=== PATIENT | female | born 1985 | race Caucasian/White ===

== ENCOUNTER 2020-11-27 04:45 | Inpatient (IN) | payer BC ==
--- NOTE | 2020-11-26 21:26 | PCM.LDHP ---
L&D History of Present Illness - General Date of Service: 11/27/20 Admit Problem/Dx: Admission Diagnosis/Problem Admission Diagnosis/Problem 11/26/20 21:15 Danielle is a 35-year-old 3 para 2-0-0-2 female admitted on the a.m. of 11/27/2020 at 39-0/7 weeks gestational age with an LEONARDO of 12/04/2020 for a repeat section. Source of Information: Patient History Limitations: Reports: No Limitations - History of Present Illness Introduction:: Danielle is a 35-year-old 3 para 2-0-0-2 female admitted on the a.m. of 11/27/2020 at 39-0/7 weeks gestational age with an LEONARDO of 12/04/2020 for a repeat section. The procedure of repeat section, its risks, benefits, alternatives of care including allowing for natural onset of labor in an attempt at trial of labor after section for vaginal after section along with follow-up and postoperative course discussed in detail with patient. She appears to understand, wishes to proceed and has signed a consent. 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 She had menarche at age 11. Cycles q. 28-31 daysregular. No control time of conception. Her last menstrual period started on 02/28/2020. Ultrasound done early in confirmed her LMP dating for final LEONARDO of 12/04/2020. Her obstetric history includes the followin. Female infant born 08/17/2007 at 40 weeks gestational age after 13 hours of labor8 pounds 9 ouncesvacuum extraction deliveryepidural usedMinn[facility]. Male infant born 04/10/2010 at 40 weeks gestational age after 30 hours of labor9 pounds 3 ouncesprimary section done for failure to progress secondary to CPD. Spinal anesthesia use. [facility]. Child's name is Marshal Santos has had an abnormal Pap smear with cervical cryotherapy in 2008. course: Danielle was first seen for the on 05/13/2020. Ultrasound at that time supported her LMP dating. She had 2 other ultrasounds done on 08/05/2020 at 23-5/7 weeks and again on 10/07/2020 at 34-2/7 weeks. Both showing growth at the 88th to the 91st percentile. She was seen on a very regular basis throughout the . Her weight gain was from 276.4 to 298 pounds for a 24 pound increase. Her vital signs remained stable throughout the course. Fundal height growth reached 42.5 cm on last evaluation clinic on 11/14/2020. She is group B strep positive on urine culture done at the beginning of . Risk factors for the include advanced maternal age, increased weight, history of previous section, history of depression with anxiety and history of macrosomia. Patient plans to breast-feed. Prequel was negative. Patient had her Tdap on 10/02/2020. She is rubella immune. Hepatitis B immunizations given in 1996. Td also given in 1996. Allergies: None Medications: 1. Ferrous sulfate 325 mg p.o. daily 2. vitamins 1 p.o. daily Past medical history: 1. Depression on medications till October 2020. History of anxiety also. 2. History of cervical abnormalitytreated with cervical cryotherapy 3. Vaginal deliveryvacuum extraction delivery-2005 Past surgical history: 1. Primary section 2008 for failure to progress 2. Cervical cryotherapy 2008. Family history: Mother is alive and well with thyroid dysfunction. Father is alive with history of heart attack, had 3 stents placedis prediabetic. Maternal grandfather secondary to aortic aneurysm. Maternal gra ndmother is alive with history of skin cancer and currently has some kidney disease. Paternal grandfather secondary to throat cancer. Paternal grandmother secondary to breast cancer. 1 brother is alive with history of gout and heart issues. Sister alive with history of asthma tendencies. Paternal aunt alive with Parkinson's disease. Paternal cousin alive with testicular cancer. There is no family history of bleeding or clotting disorders, anesthesia problems or related concerns. Social history: Patient is . is Colin Duarte. 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 She is a college graduate. She and her family live in [place], [place]. She does not use any significance alcohol, drugs or tobacco. Review of systems: Review of systems: In general patient has no complaints. Baby has been active. No significant contractions have been noted. Skin: Negative Lungs: No infectious symptoms or shortness of breath Cardiovascular: No chest pain or exercise intolerance Breasts: No lumps, changes in size, pain, dimpling, discharge or axillary or supraclavicular concerns. Patient plans to breast-feed. GI: Negative : Body habitus changes associated . Musculoskeletal: Negative Neurological: Negative Physical exam: In general the patient is well-developed, well-nourished, pleasant female of stated age in no acute distress. On last evaluation on 11/14/2020 in clinic weight was 298 pounds with a prepregnancy weight of 276.4 pounds. Height is 5 feet 9. Prepregnancy BMI is 41.6. Blood pressure 108/64. heart rate is 149. Skin is warm dry without lesions. HEENT, neck and back within normal limits. Lungs are clear with good breath sounds in all lung ashley. Cardiovascular exam shows regular and rhythm without murmurs. Breast exam done at beginning of was within normal notes and is not repeated at this time. Abdomen is gravid with last fundal height in 42.5 cm. Baby in vertex presentation.. Genital cervical exam is deferred as patient is planning having a repeat C- section. Last evaluation done 11/07/2020 shows cervix to be soft, closed, thick without evidence of ripening. Extremities and neurological exam are grossly within normal limits with the exception of trace edema in bilateral lower extremities.. 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 Social & Family History - Family History Family Medical History: No Pertinent Family History - Tobacco Use Tobacco Use Status *Q: Never Tobacco User Second Hand Smoke Exposure: No - Caffeine Use Caffeine Use: Reports: None - Recreational Drug Use Recreational Drug Use: No H&P Review of Systems - Review of Systems: Review Of Systems: See Below L&D Exam - Exam Exam: See Below - Problem List (1) 39 weeks gestation of SNOMED Code(s): 72278760 ICD Code: Z3A.39 - 39 WEEKS GESTATION OF Status: Acute (2) Previous section SNOMED Code(s): 738603985 ICD Code: Z98.891 - HISTORY OF UTERINE SCAR FROM PREVIOUS SURGERY Status: Acute (3) macrosomia SNOMED Code(s): 11809961 ICD Code: O36.60X0 - MATERNAL CARE FOR EXCESS GROWTH, UNSP TRIMESTER, UNSP Status: Acute (4) Obesity SNOMED Code(s): 091755891, 284896995 ICD Code: E66.9 - OBESITY, UNSPECIFIED Status: Acute Qualifiers: Body mass index: BMI 40.0-44.9 (5) History of anxiety SNOMED Code(s): 783786456 ICD Code: Z86.59 - PERSONAL HISTORY OF OTHER MENTAL AND BEHAVIORAL DISORDERS Status: Acute (6) History of depression SNOMED Code(s): 111055539 ICD Code: Z86.59 - PERSONAL HISTORY OF OTHER MENTAL AND BEHAVIORAL DISORDERS Status: Acute (7) Advanced maternal age (AMA) in SNOMED Code(s): 060988971 ICD Code: LMB0620 - Status: Acute (8) Group beta Strep positive SNOMED Code(s): 267498666, 984172133 ICD Code: B95.1 - STREPTOCOCCUS, GROUP B, CAUSING DISEASES CLASSD ELSWHR Status: Acute Problem List Initiated/Reviewed/Updated: Yes Assessment/Plan Comment:: 1Gee Santos is a 35-year-old 3 para 2-0-0-2 female admitted on the a.m. of 11/27/2020 at 39-0/7 weeks gestational age with an LEONARDO of 12/04/2020 for a repeat section. 2. Group B strep positive per urine culture done early in 3. Patient plans to breast-feed 4. Risk factors for the include the following: Obesity, history of macrosomia, history of previous section, history of anxiety and depressionpreviously treated, advanced maternal age, group B strep positive status. 5. Prequel noninvasive screen was negative. 6. Patient is rubella immune. Tdap given in . Plan: 1. Repeat lower uterine segment transverse section through Pfannenstiel skin incision under spinal block. Procedure, risk, benefits, alternatives of care and follow-up discussed with patient in detail. She appears understand, wishes to proceed and signed a consent. 2. DVT prophylaxis with SCDs 3. Infection prophylaxis with 3 g of Ancef preoperatively 4. Preoperative evaluation consist of CBC, Covid19 testing, urine analysis, type and screen, RPR 5. Support breast-feeding decision
[2020-11-27] MEDS ORDERED: Azithromycin 500 MG in Sodium Chloride 0.9% 250 ML IV ONE (05:42)
[2020-11-27] MEDS: Lactated Ringers 1,000 ML IV SCH ×2 (05:48→07:09)
[2020-11-27] MEDS ORDERED: Citric Acid/Sodium Citrate Solution 30 ML Cup PO ONE (06:00)
[2020-11-27] MEDS ORDERED: ceFAZolin 2 GM in Premix Bag 1 BAG IV ONE (06:00)
[2020-11-27] MEDS ORDERED: ceFAZolin 1 GM in Sodium Chloride 0.9% 100 ML IV ONE (06:00)
[2020-11-27] MEDS ORDERED: Oxytocin/Lactated Ringers 20 UNIT/1,000 ML BAG IV SCH ×2 (06:00→10:15)
[2020-11-27] MEDS ORDERED: Metoclopramide 10 MG/2 ML SDV IVPUSH ONE (06:00)
[2020-11-27] MEDS ORDERED: Sodium Chloride 0.9% 10 ML Syringe FLUSH PRN (06:00)
[2020-11-27] MEDS ORDERED: ceFAZolin 1 GM Vial ONE ×2 (07:03→07:36)
[2020-11-27] MEDS ORDERED: Ketorolac 30 MG/ML SDV ONE (07:03)
[2020-11-27] MEDS ORDERED: Lactated Ringers 2,000 ML ONE (07:03)
[2020-11-27] MEDS ORDERED: Oxytocin 10 Units/1 ML SDV ONE ×2 (07:03→07:04)
[2020-11-27] MEDS ORDERED: Ondansetron 4 MG/2 ML SDV ONE (07:03)
[2020-11-27] MEDS ORDERED: Morphine PF 10 MG/10 ML SDV ONE (07:04)
[2020-11-27] MEDS ORDERED: Bupivacaine 0.5% 30 ML SDV ONE (07:17)
--- NOTE | 2020-11-27 07:25 | PCM.PREANE ---
Preanesthetic Assessment - Procedure Proposed Procedure: csection - Anesthesia/Transfusion/Family Hx Anesthesia History: Prior Anesthesia Reaction Other Type of Anesthesia Reaction Comment: Blurred vision, lightheadedness Family History of Anesthesia Reaction: No Transfusion History: No Prior Transfusion(s) - Review of Systems General: No Symptoms Pulmonary: No Symptoms Cardiovascular: No Symptoms Gastrointestinal: No Symptoms Neurological: No Symptoms Other: Reports: None - Physical Assessment NPO Status Date: 11/26/20 NPO Status Time: 23:30 Vital Signs: Last Vital Signs Temp 98.1 F 11/27/20 05:00 Pulse 117 H 11/27/20 05:00 Resp 14 11/27/20 05:00 BP 123/67 11/27/20 05:00 Pulse Ox 96 11/27/20 05:00 Height: 5 ft 9 in Weight: 134.808 kg ASA Class: 2 Mental Status: Alert & Oriented x3 Airway Class: Mallampati = 1 Dentition: Reports: Normal Dentition Thyro-Mental Finger Breadths: 3 Mouth Opening Finger Breadths: 3 ROM/Head Extension: Full Lungs: Clear to Auscultation, Normal Respiratory Effort Cardiovascular: Regular Rate, Regular Rhythm - Lab Values: Laboratory Last Values WBC 12.95 K/mm3 (3.98-10.04) H 11/27/20 05:38 RBC 3.89 M/mm3 (3.98-5.22) L 11/27/20 05:38 Hgb 11.0 gm/dl (11.2-15.7) L 11/27/20 05:38 Hct 33.9 % (34.1-44.9) L 11/27/20 05:38 MCV 87.1 fl (79.4-94.8) 11/27/20 05:38 MCH 28.3 pg (25.6-32.2) 11/27/20 05:38 MCHC 32.4 g/dl (32.2-35.5) 11/27/20 05:38 RDW Std Deviation 42.4 fL (36.4-46.3) 11/27/20 05:38 Plt Count 267 K/mm3 (182-369) 11/27/20 05:38 MPV 10.6 fl (9.4-12.3) 11/27/20 05:38 Neut % (Auto) 73.2 % (34.0-71.1) H 11/27/20 05:38 Lymph % (Auto) 19.5 % (19.3-51.7) 11/27/20 05:38 Pinal % (Auto) 6.1 % (4.7-12.5) 11/27/20 05:38 Eos % (Auto) 0.5 (0.7-5.8) L 11/27/20 05:38 Baso % (Auto) 0.2 % (0.1-1.2) 11/27/20 05:38 Neut # (Auto) 9.48 K/mm3 (1.56-6.13) H 11/27/20 05:38 Lymph # (Auto) 2.53 K/mm3 (1.18-3.74) 11/27/20 05:38 Pinal # (Auto) 0.79 K/mm3 (0.24-0.36) H 11/27/20 05:38 Eos # (Auto) 0.07 K/mm3 (0.04-0.36) 11/27/20 05:38 Baso # (Auto) 0.02 K/mm3 (0.01-0.08) 11/27/20 05:38 Urine Color Yellow (Yellow) 11/27/20 05:31 Urine Appearance Cloudy (Clear) H 11/27/20 05:31 Urine pH 6.5 (5.0-8.0) 11/27/20 05:31 Ur Specific [place] 1.025 (1.005-1.030) 11/27/20 05:31 Urine Protein 2+ (Negative) H 11/27/20 05:31 Urine Glucose (UA) Negative (Negative) 11/27/20 05:31 Urine Ketones Negative (Negative) 11/27/20 05:31 Urine Occult Blood 3+ (Negative) H 11/27/20 05:31 Urine Nitrite Negative (Negative) 11/27/20 05:31 Urine Bilirubin Negative (Negative) 11/27/20 05:31 Urine Urobilinogen 0.2 (0.2-1.0) 11/27/20 05:31 Ur Leukocyte Esterase Trace (Negative) H 11/27/20 05:31 U Hyaline Cast (Auto) 0-5 /lpf (0-5) 11/27/20 05:31 Urine RBC >100 /hpf (0-5) H 11/27/20 05:31 Urine WBC 0-5 /hpf (0-5) 11/27/20 05:31 Ur Squamous Epith Cells 10-20 /hpf (0-5) H 11/27/20 05:31 Urine Bacteria Few /hpf (FEW) 11/27/20 05:31 Urine Mucus Few /hpf (FEW) 11/27/20 05:31 Membrane Rupture Positive H 11/27/20 05:05 - Allergies Allergies/Adverse Reactions: Allergies Allergy/AdvReac Type Severity Reaction Status Date / Time No Known Allergies Allergy Verified 11/27/20 05:18 - Blood Blood Available: No - Acknowledgements Anesthesia Type Planned: Spinal Pt an Appropriate Candidate for the Planned Anesthesia: Yes Alternatives and Risks of Anesthesia Discussed w Pt/Guardian: Yes Pt/Guardian Understands and Agrees with Anesthesia Plan: Yes PreAnesthesia Questionnaire - Past Health History Medical/Surgical History: Denies Medical/Surgical History Cardiovascular History: Reports: None Respiratory History: Reports: None Gastrointestinal History: Reports: GERD 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 Oncologic (Cancer) History: Reports: None - Past Surgical History Female Surgical History: Reports: Section - SUBSTANCE USE Tobacco Use Status *Q: Former Tobacco User (social) Tobacco Use Within Last Twelve Months: No Second Hand Smoke Exposure: No Days Per Week of Alcohol Use: 0 Recreational Drug Use History: No - HOME MEDS Home Medications: Home Meds Ferrous Sulfate 1 tab PO DAILY 11/08/20 [History] Pnv No.95/Ferrous Fum/Folic AC [ Vitamins Tablet] 1 tab PO DAILY 11/08/20 [History] - CURRENT (IN HOUSE) MEDS Current Meds: Current Medications Oxytocin/Lactated Ringer's (Pitocin In Lr 20 Units/1,000 Ml) 20 unit in 1,000 mls @ 500 mls/hr IV TITRATE CYRUS; Protocol Lactated Ringer's (Ringers, Lactated) 1,000 mls @ 125 mls/hr IV ASDIRECTED CYRUS Last Admin: 11/27/20 07:09 Dose: 125 mls/hr Documented by: Sodium Chloride (Sodium Chloride 0.9% 10 Ml Syringe) 10 ml FLUSH ASDIRECTED PRN PRN Reason: Keep Vein Open Discontinued Medications Cefazolin Sodium (Cefazolin 1 Gm Vial) Confirm Administered Dose 2 gm .ROUTE .STK-MED ONE Stop: 11/27/20 07:04 Citric Acid/Sodium Citrate (Citric Acid/Sodium Citrate Solution 30 Ml Cup) 30 ml PO ONETIME ONE Stop: 11/27/20 06:01 Last Admin: 11/27/20 06:53 Dose: 30 ml Documented by: Cefazolin Sodium 1 gm/ Sodium (Chloride) 100 mls @ 100 mls/hr IV ONETIME ONE Stop: 11/27/20 06:59 Cefazolin Sodium/Dextrose 2 gm (/ Premix) 50 mls @ 100 mls/hr IV ONETIME ONE Stop: 11/27/20 06:29 Azithromycin 500 mg/ Sodium (Chloride) 250 mls @ 250 mls/hr IV ONETIME ONE Stop: 11/27/20 06:41 Last Admin: 11/27/20 05:49 Dose: 250 mls/hr Documented by: Lactated Ringer's (Ringers, Lactated) Confirm Administered Dose 2,000 mls @ as directed .ROUTE .STK-MED ONE Stop: 11/27/20 07:04 Ketorolac Tromethamine (Ketorolac 30 Mg/Ml Sdv) Confirm Administered Dose 30 mg .ROUTE .STK-MED ONE Stop: 11/27/20 07:04 Metoclopramide HCl (Metoclopramide 10 Mg/2 Ml Sdv) 10 mg IVPUSH ONETIME ONE Stop: 11/27/20 06:01 Last Admin: 11/27/20 06:53 Dose: 10 mg Documented by: Morphine Sulfate (Morphine Pf 10 Mg/10 Ml Sdv) Confirm Administered Dose 10 mg .ROUTE .STK-MED ONE Stop: 11/27/20 07:05 Ondansetron HCl (Ondansetron 4 Mg/2 Ml Sdv) Confirm Administered Dose 4 mg .ROUTE .STK-MED ONE Stop: 11/27/20 07:04 Oxytocin (Oxytocin 10 Units/1 Ml Sdv) Confirm Administered Dose 10 unit .ROUTE .STK-MED ONE Stop: 11/27/20 07:04 Oxytocin (Oxytocin 10 Units/1 Ml Sdv) Confirm Administered Dose 10 unit .ROUTE .STK-MED ONE Stop: 11/27/20 07:05
[2020-11-27] MEDS ORDERED: Ondansetron 4 MG/2 ML SDV IVPUSH PRN (07:53)
[2020-11-27] MEDS ORDERED: fentaNYL 100 MCG/2 ML SDV IVPUSH PRN (07:53)
[2020-11-27] MEDS ORDERED: diphenhydrAMINE 50 MG/ML SDV IVPUSH PRN ×2 (07:53→10:09)
[2020-11-27] MEDS ORDERED: Meperidine 50 MG/ML Vial IVPUSH PRN (07:53)
--- NOTE | 2020-11-27 08:42 | PCM.POSTAN ---
POST ANESTHESIA ASSESSMENT - MENTAL STATUS Mental Status: Alert, Oriented - VITAL SIGNS Vital Signs: Last Vital Signs Temp 98.1 F 11/27/20 05:00 Pulse 117 H 11/27/20 05:00 Resp 14 11/27/20 05:00 BP 123/67 11/27/20 05:00 Pulse Ox 96 11/27/20 05:00 0837 103/54 99% 84 8 98.4 - RESPIRATORY Respiratory Status: Respiratory Rate WNL, Airway Patent, O2 Saturation Stable, Supplemental Oxygen - CARDIOVASCULAR CV Status: Pulse Rate WNL, Blood Pressure Stable - GASTROINTESTINAL GI Status: No Symptoms - PAIN Pain Score: 0 - POST OP HYDRATION Hydration Status: Adequate & Stable
--- NOTE | 2020-11-27 09:04 | PCM.OPNOTE ---
- General Post-Op/Procedure Note Date of Surgery/Procedure: 11/27/20 Operative Procedure(s): Repeat lower uterine segment transverse section through Pfannenstiel skin incision Findings: Danielle is a 35-year-old 3 para 2-0-0-2 female admitted on the a.m. of 11/27/2020 at 39-0/7 weeks gestational age with an LEONARDO of 12/04/2020 for a repeat section. Minimal scarring noted in the anterior abdominal wall. Uterine wall thickness was normal. Uterus tubes ovaries were consistent with normal term . Baby is in vertex presentation. Amniotic fluid was moderate in amount and clear in nature. Umbilical cord had 3 vessels. Baby's weight was 4310 g (9 pounds 8 ounces), Apgars were 8 and 8. Length was 21 inches. Delivery time was 0801 hrs. on 11/27/2020 Pre Op Diagnosis: 1. 39-0/7-week intrauterine . 2. History of previous section with desire for repeat section. 3. SROM with clear amniotic fluid resulting. 4. History of macrosomic baby Post-Op Diagnosis: Same Anesthesia Technique: Spinal Other Anesthesia Type: Marcaine 0.5% - 20 cclocal Primary Surgeon: Eulogio Callejas Secondary Surgeon: Silvino Baker Anesthesia Provider: Darren Barnett Tube Drawer: Mike Quintanilla Reason Tube Drawer Was Necessary: Retraction, assistance, patient safety, quality of care. Fluid Replacement, Intraop: 2,800 EBL in mLs: 500 Drain/Tube Comments:: Indwelling bladder catheter Complications: None Condition: Good Free Text/Narrative:: Surgery duration: 36 minutes. Surgery duration: Procedure: The patient is appropriately consented. Patient was transferred to the room and placed in a sitting position. Spinal anesthesia was administered. After confirmation of adequate anesthesia patient was placed in a supine position with a wedge under her right side to facilitate left lateral positioning. The patient was prepped and draped in usual fashion after Haywood catheter was placed . The anesthetic was checked and found to be adequate. 20 mL of Marcaine 0.5% was injected locally in the Pfannenstiel incision site. The Pfannenstiel skin incision was then made and carried down through skin, subcutaneous and fascial layers. The fascia was then undermined superiorly and inferiorly to allow for adequate operating room. The recti muscles midline and preperitoneal fat was bluntly dissected. Peritoneal cavity was entered longitudinally. The vesicouterine peritoneum was then incised transversely and bladder flap was developed. Myometrium was incised transversely to the level of the amniotic sac. This incision was extended bilaterally in a blunt fashion. The amniotic sac was then ruptured resulting in clear amniotic fluid. A hand is placed in the low uterine segment and the baby's head was brought forth through the incision. The baby was completely delivered using fundal pressure in a routine fashion. The nose and mouth were bulb suctioned. Baby's cord was clamped x2 cut and baby was handed off to attending graphite pan drier tender Dr Damico. Placenta was expressed after cord blood was obtained. Uterus was then exteriorized to allow for easier closure. The cervix was assessed and found to be dilated adequately to allow egress of blood. The uterus was closed in 2 layers. The first layer a running locked suture of 0 Monocryl, the second layer a running locked vertical mattress suture of 0 Monocryl. [id number] suture was placed at mid incision to control 1 bleeder. Hemostasis confirmed at this time. Sponge instrument needle counts are correct. The uterus was returned to the abdominal cavity and lateral gutters were cleared of blood. Once again sponge needle counts are correct. The anterior abdominal wall was closed with a #1 PDS suture from angle to angle. The subcutaneous area was found to be free of any bleeders. interrupted sutures of 3-0 Monocryl were used to reapproximate the subcutaneous layer. Skin was closed with a running subcuticular stitch of 3-0 Monocryl in a vertical mattress suture fashion using a Baldo needle. Prineo mesh/glue was then applied to further approximate the incision. It should be noted that patient received 3 g of Ancef preoperatively and 500 mg of Azithromycin per protocol for infection prophylaxis (She had SROM at 0330 hours on the day of CS) and had Pitocin infused after delivery of the placenta to facilitate uterine contraction. She also had sequential compression stockings in place for DVT prophylaxis. Patient was discharged from the operating room in satisfactory condition.
[2020-11-27] MEDS ORDERED: Docusate Sodium 100 MG Cap PO PRN (10:09)
[2020-11-27] MEDS ORDERED: Naloxone 0.4 MG/ML SDV IVPUSH PRN (10:09)
[2020-11-27] MEDS ORDERED: Dextrose 5%-Lactated Ringers 1,000 ML IV SCH (10:09)
[2020-11-27] MEDS ORDERED: ePHEDrine 50 MG/ML SDV IVPUSH PRN (10:09)
[2020-11-27] MEDS ORDERED: Ondansetron 4 MG/2 ML SDV IV PRN (10:09)
[2020-11-27] MEDS: Simethicone 80 MG Tab.Chew PO SCH ×4 (11:24→20:54)
[2020-11-27] MEDS: Prenatal Multivitamin with Calcium/Folic Acid/Iron Tab PO SCH (14:38)
[2020-11-27] MEDS: Ibuprofen 800 MG Tab PO SCH ×2 (14:47→20:51)
[2020-11-27] MEDS: Acetaminophen/oxyCODONE 325-5 MG Tab PO PRN (22:17)
[2020-11-28] MEDS: Ibuprofen 800 MG Tab PO SCH ×3 (05:31→21:22)
[2020-11-28] MEDS: Acetaminophen/oxyCODONE 325-5 MG Tab PO PRN ×5 (06:12→21:22)
[2020-11-28] MEDS: Simethicone 80 MG Tab.Chew PO SCH ×4 (08:46→21:20)
[2020-11-28] MEDS: Prenatal Multivitamin with Calcium/Folic Acid/Iron Tab PO SCH (09:08)
--- NOTE | 2020-11-28 09:26 | PCM48HPAN ---
Post Anesthesia Note - EVALUATION WITHIN 48HRS OF ANESTHETIC Vital Signs in Normal Range: Yes Patient Participated in Evaluation: Yes Respiratory Function Stable: Yes Airway Patent: Yes Cardiovascular Function Stable: Yes Hydration Status Stable: Yes Pain Control Satisfactory: Yes Nausea and Vomiting Control Satisfactory: Yes Mental Status Recovered: Yes Vital Signs: Last Vital Signs Temp 98.1 F 11/28/20 05:30 Pulse 85 11/28/20 05:31 Resp 14 11/28/20 05:30 BP 101/59 L 11/28/20 05:30 Pulse Ox 96 11/28/20 05:31 - COMMENTS/OBSERVATIONS Free Text/Narrative:: sitting up in bed holding baby. No complaints
[2020-11-29] MEDS: Acetaminophen/oxyCODONE 325-5 MG Tab PO PRN (04:51)
[2020-11-29] MEDS: Ibuprofen 800 MG Tab PO SCH (04:52)
--- NOTE | 2020-11-29 08:24 | PCM.DCSUM1 ---
Discharge Summary - Hospital Course Diagnosis: Stroke: No - Discharge Data Discharge Date: 11/29/20 Discharge Disposition: Home, Self-Care 01 Condition: Good - Referral to Home Health Primary Care Physician: Eulogio Callejas MD - Patient Summary/Data Operative Procedure(s) Performed: Repeat lower uterine segment transverse section through Pfannenstiel skin incision Hospital Course: Danielle is a 35-year-old 3 para 2-0-0-2 female admitted on the a.m. of 11/27/2020 at 39-0/7 weeks gestational age with an LEONARDO of 12/04/2020 for a repeat section. Minimal scarring noted in the anterior abdominal wall. Uterine wall thickness was normal. Uterus tubes ovaries were consistent with normal term . Baby is in vertex presentation. Amniotic fluid was moderate in amount and clear in nature. Umbilical cord had 3 vessels. Baby's weight was 4310 g (9 pounds 8 ounces), Apgars were 8 and 8. Length was 21 inches. Delivery time was 0801 hrs. on 11/27/2020 Pre Op Diagnosis: 1. 39-0/7-week intrauterine . 2. History of previous section with desire for repeat section. 3. SROM with clear amniotic fluid resulting. 4. History of macrosomic baby - Patient Instructions Diet: Usual Diet as Tolerated Activity: No Strenuous Activities Driving: Do Not Drive Showering/Bathing: May Shower Wound/Incision Care: Keep Operative Site/Wound Site Clean and Dry Notify Provider of: Fever, Increased Pain, Swelling and Redness, Drainage, Nausea and/or Vomiting - Discharge Plan *PRESCRIPTION DRUG MONITORING PROGRAM REVIEWED*: No *COPY OF PRESCRIPTION DRUG MONITORING REPORT IN PATIENT MARVIN: No Home Medications: Home Meds Ferrous Sulfate 1 tab PO DAILY 11/08/20 [History] Pnv No.95/Ferrous Fum/Folic AC [ Vitamins Tablet] 1 tab PO DAILY 11/08/20 [History] Referrals: Eulogio Callejas MD [Primary Care Provider] - (2 weeks) - Discharge Summary/Plan Comment DC Time >30 min.: No Total # of Minutes for Discharge Time: 20 - General Info Date of Service: 11/29/20 Functional Status: Reports: Pain Controlled - Review of Systems General: Reports: No Symptoms HEENT: Reports: No Symptoms Pulmonary: Reports: No Symptoms Cardiovascular: Reports: No Symptoms Gastrointestinal: Reports: No Symptoms Genitourinary: Reports: No Symptoms Musculoskeletal: Reports: No Symptoms Skin: Reports: No Symptoms Neurological: Reports: No Symptoms Psychiatric: Reports: No Symptoms - Patient Data Vitals - Most Recent: Last Vital Signs Temp 36.2 C 11/29/20 04:25 Pulse 82 11/29/20 04:25 Resp 15 11/29/20 04:25 BP 125/60 11/29/20 04:25 Pulse Ox 96 11/29/20 04:25 Weight - Most Recent: 134.808 kg Lab Results - Last 24 hrs: Laboratory Results - last 24 hr 11/27/20 Range/Units 05:38 Antibody Identification See Comments Med Orders - Current: Current Medications Diphenhydramine HCl (Diphenhydramine 50 Mg/Ml Sdv) 25 mg IVPUSH Q6H PRN PRN Reason: Itching or Nausea Docusate Sodium (Docusate Sodium 100 Mg Cap) 100 mg PO Q12H PRN PRN Reason: Constipation Ephedrine Sulfate (Ephedrine 50 Mg/Ml Sdv) 5 mg IVPUSH SEECOMMENT PRN PRN Reason: Other Oxytocin/Lactated Ringer's (Pitocin In Lr 20 Units/1,000 Ml) 20 unit in 1,000 mls @ 375 mls/hr IV CONTINUOUS C[facility]US; Protocol Last Admin: 11/27/20 10:32 Dose: 375 mls/hr Documented by: Ibuprofen (Ibuprofen 800 Mg Tab) 800 mg PO Q8H C[facility]US Last Admin: 11/29/20 04:52 Dose: 800 mg Documented by: Naloxone HCl (Naloxone 0.4 Mg/Ml Sdv) 0.1 mg IVPUSH SEECOMMENT PRN PRN Reason: Respiratory Depression Ondansetron HCl (Ondansetron 4 Mg/2 Ml Sdv) 4 mg IV Q4H PRN PRN Reason: Nausea/Vomiting Last Admin: 11/27/20 11:18 Dose: 4 mg Documented by: Oxycodone/Acetaminophen (Acetaminophen/Oxycodone 325-5 Mg Tab) 1 tab PO Q4H PRN PRN Reason: Pain (moderate 4-6) Last Admin: 11/29/20 04:51 Dose: 1 tab Documented by: Oxycodone/Acetaminophen (Acetaminophen/Oxycodone 325-5 Mg Tab) 2 tab PO Q4H PRN PRN Reason: Pain (severe 7-10) Last Admin: 11/28/20 21:22 Dose: 2 tab Documented by: Prenat Multivit/[place]/Iron/Folic Ac ( Multivitamin With Calcium/Folic Acid/Iron Tab) 1 each PO DAILY [facility] Last Admin: 11/28/20 09:08 Dose: Not Given Documented by: Simethicone (Simethicone 80 Mg Tab.Chew) 160 mg PO QID [facility] Last Admin: 11/28/20 21:20 Dose: 160 mg Documented by: Discontinued Medications Bupivacaine HCl (Bupivacaine 0.5% 30 Ml Sdv) Confirm Administered Dose 30 ml .ROUTE .STK-MED ONE Stop: 11/27/20 07:18 Last Admin: 11/27/20 07:56 Dose: 20 ml Documented by: Cefazolin Sodium (Cefazolin 1 Gm Vial) Confirm Administered Dose 2 gm .ROUTE .STK-MED ONE Stop: 11/27/20 07:04 Cefazolin Sodium (Cefazolin 1 Gm Vial) Confirm Administered Dose 1 gm .ROUTE .STK-MED ONE Stop: 11/27/20 07:37 Citric Acid/Sodium Citrate (Citric Acid/Sodium Citrate Solution 30 Ml Cup) 30 ml PO ONETIME ONE Stop: 11/27/20 06:01 Last Admin: 11/27/20 06:53 Dose: 30 ml Documented by: Diphenhydramine HCl (Diphenhydramine 50 Mg/Ml Sdv) 25 mg IVPUSH Q6H PRN PRN Reason: Pruritis Fentanyl (Fentanyl 100 Mcg/2 Ml Sdv) 50 mcg IVPUSH Q5M PRN PRN Reason: Pain Cefazolin Sodium 1 gm/ Sodium (Chloride) 100 mls @ 100 mls/hr IV ONETIME ONE Stop: 11/27/20 06:59 Last Admin: 11/27/20 23:52 Dose: Not Given Documented by: Cefazolin Sodium/Dextrose 2 gm (/ Premix) 50 mls @ 100 mls/hr IV ONETIME ONE Stop: 11/27/20 06:29 Last Admin: 11/27/20 23:54 Dose: Not Given Documented by: Oxytocin/Lactated Ringer's (Pitocin In Lr 20 Units/1,000 Ml) 20 unit in 1,000 mls @ 500 mls/hr IV TITRATE [facility]; Protocol Lactated Ringer's (Ringers, Lactated) 1,000 mls @ 125 mls/hr IV ASDIRECTED [facility]YRUS Last Admin: 11/27/20 07:09 Dose: 125 mls/hr Documented by: Azithromycin 500 mg/ Sodium (Chloride) 250 mls @ 250 mls/hr IV ONETIME ONE Stop: 11/27/20 06:41 Last Admin: 11/27/20 05:49 Dose: 250 mls/hr Documented by: Lactated Ringer's (Ringers, Lactated) Confirm Administered Dose 2,000 mls @ as directed .ROUTE .STK-MED ONE Stop: 11/27/20 07:04 Dextrose/Lactated Ringer's (Dextrose 5%-Lactated Ringers) 1,000 mls @ 125 mls/hr IV ASDIRECTED [facility] Stop: 11/27/20 18:08 Last Admin: 11/27/20 12:13 Dose: 125 mls/hr Documented by: Ketorolac Tromethamine (Ketorolac 30 Mg/Ml Sdv) Confirm Administered Dose 30 mg .ROUTE .STK-MED ONE Stop: 11/27/20 07:04 Meperidine HCl (Meperidine 50 Mg/Ml Vial) 25 mg IVPUSH ONETIME PRN PRN Reason: Shivering Metoclopramide HCl (Metoclopramide 10 Mg/2 Ml Sdv) 10 mg IVPUSH ONETIME ONE Stop: 11/27/20 06:01 Last Admin: 11/27/20 06:53 Dose: 10 mg Documented by: Miscellaneous Medication (Phenylephrine Hcl In 0.9% Nacl 1 Mg/10 Ml Syringe) Confirm Administered Dose 1 mg .ROUTE .STK-MED ONE Stop: 11/27/20 07:46 Morphine Sulfate (Morphine Pf 10 Mg/10 Ml Sdv) Confirm Administered Dose 10 mg .ROUTE .STK-MED ONE Stop: 11/27/20 07:05 Ondansetron HCl (Ondansetron 4 Mg/2 Ml Sdv) Confirm Administered Dose 4 mg .ROUTE .STK-MED ONE Stop: 11/27/20 07:04 Ondansetron HCl (Ondansetron 4 Mg/2 Ml Sdv) 4 mg IVPUSH ONETIME PRN PRN Reason: Nausea/Vomiting Oxytocin (Oxytocin 10 Units/1 Ml Sdv) Confirm Administered Dose 10 unit .ROUTE .STK-MED ONE Stop: 11/27/20 07:04 Oxytocin (Oxytocin 10 Units/1 Ml Sdv) Confirm Administered Dose 10 unit .ROUTE .STK-MED ONE Stop: 11/27/20 07:05 Sodium Chloride (Sodium Chloride 0.9% 10 Ml Syringe) 10 ml FLUSH ASDIRECTED PRN PRN Reason: Keep Vein Open - Exam General: Reports: Alert, Oriented HEENT: Reports: Pupils Equal, Pupils Reactive, EOMI, Mucous Membr. Moist/[place] Neck: Reports: Supple Lungs: Reports: Clear to Auscultation, Normal Respiratory Effort Cardiovascular: Reports: Regular Rate, Regular Rhythm GI/Abdominal Exam: Normal Bowel Sounds, Soft, Non-Tender, No Organomegaly, No Distention Rectal (Female) Exam: Normal Exam Back Exam: Reports: Normal Inspection, Full Range of Motion Extremities: Normal Inspection, Normal Range of Motion, Non-Tender, No Pedal Edema, Normal Capillary Refill Skin: Reports: Warm, Dry, Intact Wound/Incisions: Reports: Healing Well Neurological: Reports: No New Focal Deficit Psy/Mental Status: Reports: Alert, Normal Mood
[2020-11-29] MEDS: Prenatal Multivitamin with Calcium/Folic Acid/Iron Tab PO SCH (09:32)
[2020-11-29] MEDS: Simethicone 80 MG Tab.Chew PO SCH (09:33)
== END 2020-11-29 09:33 | disposition home or self-care (01) | DRG 540 ==
LOC: JD.OB 04:45 → OBSVTOIN 08:01 → JD.OB 08:01
PROVIDERS: ADMIT Obstetrics & Gynecology; ATTEND Obstetrics & Gynecology
PROC: 10D00Z1 Extraction of Products of Conception, Low, Open Approach (ICD-10-PCS; principal; 2020-11-27)
DX: O34.211 Maternal care for low transverse scar from previous cesarean delivery (principal); O99.214 Obesity complicating childbirth; O36.63X0 Maternal care for excessive fetal growth, third trimester, not applicable or unspecified; Z20.822 Contact with and (suspected) exposure to COVID-19; Z37.0 Single live birth; Z3A.39 39 weeks gestation of pregnancy; Z86.59 Personal history of other mental and behavioral disorders
CPT/HCPCS: 01961; 36415; 59025; 81001; 84112; 85025; 86592; 86850; 86870; 86900; 86901; 94762; A9270-GY; J0456; J0690; J1885; J2270; J2370; J2405; J2590; J2765; J3490; J7050; J7120; J7121; U0002

== ENCOUNTER 2022-05-01 20:01 | Emergency (ER) | payer OTHER ==
[2022-05-01] MEDS ORDERED: Sodium Chloride 0.9% 10 ML Syringe FLUSH PRN (20:34)
[2022-05-01] MEDS ORDERED: Ondansetron 4 MG/2 ML SDV IVPUSH ONE (20:34)
[2022-05-01] MEDS ORDERED: Sodium Chloride 0.9% 1,000 ML IV STA (20:34)
[2022-05-01] MEDS ORDERED: Ketorolac 30 MG/ML SDV IVPUSH ONE (20:36)
[2022-05-01] MEDS ORDERED: HYDROmorphone 0.5 MG/0.5 ML Syringe IVPUSH ONE (20:37)
[2022-05-01] MEDS ORDERED: cefTRIAXone 2 GM in Sodium Chloride 0.9% 100 ML IV ONE (22:28)
[2022-05-01] MEDS ORDERED: Sodium Chloride 0.9% 1,000 ML IV ONE (22:55)
== END 2022-05-02 00:51 | disposition home or self-care (01) ==
LOC: JD.ED 20:01
DX: K57.32 Diverticulitis of large intestine without perforation or abscess without bleeding (principal); E66.9 Obesity, unspecified; Z68.41 Body mass index [BMI] 40.0-44.9, adult; Z79.899 Other long term (current) drug therapy
CPT/HCPCS: 36415; 74176; 80053; 81001; 83690; 84703; 85025; 96361; 96365; 96375; 99284; J0696; J1170; J1885; J2405; J3490; J7030